=== PATIENT | female | born 1965 | race Caucasian/White ===

== ENCOUNTER 2024-01-22 16:36 | Emergency (ER) | payer OTHER, SELFPAY ==
--- NOTE | ~2024-01-22 | XR_ITS ---
EXAMINATION: XR ankle LT min 3V DATE: 01/22/2024 17:36 INDICATION: Lateral left ankle pain. Fall. TECHNIQUE: 4 views of left ankle were obtained. COMPARISON: None. FINDINGS: Bone alignment is normal. No fracture. There is mild ankle and naviculocuneiform joint oste oarthritis. There are enthesophytes at the posterior and plantar aspects of the calcaneal tuberosity. IMPRESSION: 1. Mild polyarticular osteoarthritis. Reviewed, dictated and finalized at location [facility]
[2024-01-22 16:57] VITALS: BP 124/81; PULSE 92; RESP 16; TEMP 36.7; O2SAT 99
[2024-01-22 17:01] VITALS: BP 124/81; PULSE 92; RESP 16; TEMP 36.7; O2SAT 99
--- NOTE | 2024-01-22 17:16 | ED.UPPEXIN ---
HPI - Extremity Injury (Upper) General Chief Complaint: Extremity Injury, Upper Stated Complaint: right thumb injury,back pain,left ankle pain Time Seen by Provider: 01/22/24 17:15 Source: patient and RN notes reviewed Mode of arrival: ambulatory Limitations: no limitations History of Present Illness HPI narrative: 58-year-old female presents concern for laceration to the palmar aspect of her right hand. Reports prior to arrival she fell chronic her dog out upon. She reports she clean the wound prior to arrival. She is not sure of her last tetanus shot MD complaint: injury to: right and hand Related Data Home Medications Medication Instructions Recorded Confirmed duloxetine 60 mg capsule,delayed mg PO 01/22/24 release levothyroxine 75 mcg tablet mcg 01/22/24 ubrogepant 50 mg tablet (Ubrelvy) mg 01/22/24 Allergies Allergy/AdvReac Type Severity Reaction Status Date / Time codeine Allergy Mild Other Verified 01/22/24 17:27 melanie Allergy Unknown Unknown Verified 01/22/24 17:01 Review of Systems Review of Systems: CONSTITUTIONAL: Denies malaise, chills, sweats, or fever. SKIN: Reports laceration to the might hand MUSCULOSKELETAL: Reports left ankle pain NEUROLOGIC: Denies numbness, weakness All systems reviewed & are unremarkable except as noted in HPI and below PMFSH Family History Family History (Updated 04/19/17 @ 11:20 by DOCTOR UNKNOWN) Mother Patient's mother is in good health Father Patient's father is Sibling Patient's sister is in good health Social History Social History Smoking status: Never smoker Alcohol intake: current Comments At time of signature, agree with nursing past medical, surgical, social and family history. There is no relevant family history pertinent to the presenting complaint Exam Narrative: GENERAL: Well-appearing, well-nourished, and in no acute distress. HEAD: Normocephalic EYES: PERRLA, conjunctivae clear NECK: Supple. CHEST: Speaks in full sentences. No respiratory distress. HEART: Regular rate and rhythm. Normal and equal peripheral pulses. EXTREMITIES: Right hand and digits of hand have normal strength and sensation. 5/5 strength with digit flexion, extension. Range of motion normal. No clubbing, cyanosis, or edema noted. Normal digital cascade with flexion of fingers, median, ulnar and radial nerve intact. Normal sensation of each side of finger. Can perform 'okay' sign, 'cross over finger test of index and middle fingers' and 'thumbs up' sign. No scissoring. Normal thumb opposition. Good capillary refill and radial pulse. Distal capillary refill less than 3 seconds. Left ankle, foot, digits have grossly normal sensation, strength, range of motion, edema noted to the ankle SKIN: Warn, dry, pink. No rash. 1.5 cm v-shaped laceration noted to the palmar aspect of the right hand beneath the 1st digit NEURO: Alert and oriented x3. PSYCH: Normal mood and affect Course Course Emergency Course: Patient is aware of diagnosis, understands and agrees to treatment plan. Anticipatory guidance given. Patient agrees to follow-up as directed and is aware of reasons to seek care at the emergency department. Portions of this record may have been created with voice recognition software Level of Care: Express Care Visit Vital Signs Vital signs: Vital Signs Temperature 98.1 F 01/22/24 16:57 Pulse Rate 92 01/22/24 16:57 Respiratory Rate 16 01/22/24 16:57 Blood Pressure 124/81 01/22/24 16:57 Pulse Oximetry 99 01/22/24 16:57 Oxygen Delivery Room Air 01/22/24 16:57 Temperature 98.1 F 01/22/24 17:01 Pulse Rate 92 01/22/24 17:01 Respiratory Rate 16 01/22/24 17:01 Blood Pressure 124/81 01/22/24 17:01 Pulse Oximetry 99 01/22/24 17:01 Oxygen Delivery Room Air 01/22/24 17:01 Reviewed. Procedures Laceration Laceration 1: Date: 01/22/24 Time: 17:32 Site: hand Va[facility]
[2024-01-22] MEDS: TETANUS,DIPHTHERIA,AC PERTUSSIS ADULT (0.5 ML) BOOSTRIX IM (17:32)
== END 2024-01-22 18:13 | disposition home or self-care (01) ==
PROVIDERS: Emergency Provider Nurse Practitioner
DX: S61.411A Laceration without foreign body of right hand, initial encounter (principal); S93.402A Sprain of unspecified ligament of left ankle, initial encounter; W19.XXXA Unspecified fall, initial encounter; Z23 Encounter for immunization
CPT/HCPCS: 12001; 73610; 90471; 90715; 99213; G0463

== ENCOUNTER 2025-05-28 13:51 | Emergency (ER) | payer OTHER, SELFPAY ==
[2025-05-28 13:43] VITALS: BP 121/71; PULSE 82; RESP 15; TEMP 36.4; O2SAT 98
[2025-05-28 13:59] VITALS: BP 121/71; PULSE 82; RESP 15; TEMP 36.4; O2SAT 98
--- NOTE | 2025-05-28 14:12 | ED_ITS ---
HPI - Allergic Reaction General Chief complaint: Allergic Reaction Stated complaint: allergic reaction Time Seen by Provider: 05/28/25 14:00 History of Present Illness HPI narrative: Patient presents here with concern for allergic reaction. She has anaphylactic reactions to melanie and came in, had recently tried a new natural shampoo and when she was drying her hair started feeling a lump in her throat and difficulty breathing, and had diarrhea, with itching to her hands, immediately gave herself her EpiPen, and came in. Also took hydroxyzine at home. Thankfully her symptoms have all resolved at this time. Related Data Home Medications ?Medication ?Instructions ?Recorded ?Confirmed ?Last Taken ?Type duloxetine 60 mg capsule,delayed mg PO 01/22/24 05/22/25 Unknown History release hydroxyzine HCl 25 mg tablet 25 mg PO DAILY PRN 05/22/25 05/22/25 Unknown History Allergies Allergy/AdvReac Type Severity Reaction Status Date / Time codeine Allergy Mild Other Verified 05/28/25 14:02 melanie Allergy Unknown Unknown Verified 05/28/25 14:02 cumin AdvReac Intermediate Anaphylaxis Verified 05/28/25 14:02 Review of Systems Review of Systems: All systems reviewed & are unremarkable except as noted in HPI and below PMFSH Past Medical History Medical History (Updated 05/28/25 @ 15:53 by Ghada Soliman MD) Migraines Hypothyroidism BMI 35.0-35.9,adult Keloid Hx of endometriosis Anxiety disorder, unspecified Family History Family History (Updated 02/21/25 @ 07:42 by ESTELA Shirley) Mother Patient's mother is in good health Ovarian cancer Father No problems noted. Sibling Patient's sister is in good health Social History Social History (Updated 02/21/25 @ 07:43 by ESTELA Shirley) Smoking status: Never smoker Second hand tobacco smoke exposure: No Alcohol intake: current Substance use: never Substance use type: does not use Do You Feel Safe in your Home?: Yes Lack of Transportation: No Lack of Food: Never True Current Housing: I Have Housing Concerned About Future Housing: No Difficulty Paying Gas/Electric Bills: No Difficulty Paying for Meds: No Currently Unemployed: No Education: Master's Degree or Higher Difficulty w/ Childcare or Family Care: No Living arrangements: alone Occupation/Education: occupation 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 EYES: EOMI, conjunctiva normal ENT: Hearing grossly intact; no stridor, no lip or tongue swelling, normal voice LUNGS: Nonlabored breathing. Clear to auscultation bilaterally HEART: [Regular rate and rhythm] ABD: [Soft], [nontender to palpation] EXT: Normal range of motion SKIN: [No rashes or lesions.] NEURO: [Alert and oriented x 3. No gross focal sensory or strength deficits.] PSYCH: Normal affect Course Vital Signs Vital signs: Vital Signs Temperature 97.5 F L 05/28/25 13:43 Pulse Rate 82 05/28/25 13:43 Respiratory Rate 15 05/28/25 13:43 Blood Pressure 121/71 05/28/25 13:43 Pulse Oximetry 98 05/28/25 13:43 Oxygen Delivery Room Air 05/28/25 13:43 Temperature 97.8 F 05/28/25 15:37 Pulse Rate 82 05/28/25 15:37 Respiratory Rate 20 05/28/25 15:37 Blood Pressure 109/55 L 05/28/25 15:37 Pulse Oximetry 98 05/28/25 15:37 Oxygen Delivery Room Air 05/28/25 13:59 MDM - Allergic Reaction MDM Narrative Medical decision making narrative: MEDICAL DECISION MAKING AND COURSE IN THE ED WITH INTERPRETATION/REVIEW OF DIAGNOSTIC STUDIES: Electronic medical record was reviewed. Patient presented to the ED with a complaint of [possible allergic reaction]. Vitals [were within acceptable limits]. Physical exam revealed well-appearing patient, no signs of airway compromise, with clear lungs, no skin changes, abdomen soft and nontender. Based on the patient's history and physical exam, my differential includes but is not limited to [allergic/anaphylactic reaction, anxiety reaction]. [Patient was given Claritin, famotidine, steroids]. On re-evaluation, the patient was feeling fine. Has been observed here for several hours without return of symptoms. She has not had worsening of symptoms here and feels comfortable for discharge and will go home with claritin, famotidine, and prednisone and epi pen refill, and followup with PCP, return for further issues. Patient verbalizes understanding. Discharge Plan Discharge Clinical Impression: Anaphylaxis Patient Disposition: Home Condition: Stable Instructions: Anaphylaxis (ED) Additional Instructions: Please follow up with your doctor; you can always return for any further issues. Take medications as prescribed. Patient Language: Nepali Prescriptions: New famotidine 20 mg tablet 20 mg PO DAILY Qty: 14 0RF epinephrine [EpiPen] 0.3 mg/0.3 mL auto-injector 0.3 mg IM Q5-15M PRN (Reason: anaphylaxis) Qty: 2 0RF Rx Instructions: do not exceed 3 doses per episode loratadine 10 mg tablet 10 mg PO DAILY Qty: 14 0RF prednisone 20 mg tablet 40 mg PO DAILY 5 Days Qty: 10 0RF No Action duloxetine 60 mg capsule,delayed release(DR/EC) PO hydroxyzine HCl 25 mg tablet 25 mg PO DAILY PRN epinephrine [EpiPen 2-Cong] 0.3 mg/0.3 mL auto-injector 0.3 mg IM ONCE Qty: 2 0RF Rx Instructions: as a single dose; may repeat once Ubrelvy 50 mg tablet 50 mg PO ONCE PRN (Reason: migraine headache) Qty: 30 0RF Rx Instructions: Take 1 tablet as a single dose; if symptoms persist or return, may repeat dose after =2 hours. Maximum: 200 mg per 24 hours. Follow-up/Referrals: Sonya Figueredo DO [Primary Care Provider] -
[2025-05-28 14:31] VITALS: BP 105/52; PULSE 77; RESP 17; O2SAT 97
[2025-05-28] MEDS: LORATADINE 10 MG TABLET PO (14:38)
[2025-05-28] MEDS: FAMOTIDINE 20 MG TABLET PO (14:39)
[2025-05-28 15:37] VITALS: BP 109/55; PULSE 82; RESP 20; TEMP 36.6; O2SAT 98
[2025-05-28 16:26] VITALS: BP 101/58; PULSE 92; RESP 15; TEMP 36.6; O2SAT 98
== END 2025-05-28 16:27 | disposition home or self-care (01) ==
LOC: ANHED 16:17
PROVIDERS: Emergency Provider Emergency Medicine; PCP Family Medicine
DX: T78.2XXA Anaphylactic shock, unspecified, initial encounter (principal); E03.9 Hypothyroidism, unspecified; N80.9 Endometriosis, unspecified; Z91.018 Allergy to other foods
CPT/HCPCS: 31899; 99283; A9270; J7512